=== PATIENT | female | born 1965 | race Caucasian/White ===

== ENCOUNTER → 2016-06-09 | Outpatient (CLI) | payer BC ==
--- NOTE | 2016-06-09 16:35 | MAMMOGRAPHY REPORT ---
BILATERAL DIGITAL DIAGNOSTIC MAMMOGRAM TOMOSYNTHESIS WITH CAD: 06/09/2016 CLINICAL HISTORY: Short interval follow-up of bilateral breast calcifications. History of atypia di agnosed on left breast excisional biopsy. TECHNIQUE: Breast tomosynthesis in addition to standard 2D mammography was performed. Current study was also evaluated with a Computer Aided Detection (CAD) system. Bilateral CC and MLO 2-D and breann synthesis images and bilateral spot magnification CC and ML views were obtained. COMPARISON: Comparison is made to exams dated: 12/02/2015 ultrasound, 12/02/2015 mammogram, 11/24/2015 m ammogram, 09/19/2013 mammogram, and 06/06/2013 mammogram - [facility]. BREAST COMPOSITION: The tissue of both breasts is extremely dense, which lowers the sensitivity of mammography. FINDINGS: Again noted are postsurgical changes in the left breast from prior excisional biopsy. Sp ot magnification views of the right breast demonstrate scattered and grouped calcifications within t he right upper outer quadrant, the majority of which demonstrate layering on the lateral view consis tent with benign milk of calcium. The calcifications are stable compared to the 12/02/2015 exam. Spo t magnification views of the left breast demonstrate scattered and grouped calcifications in the lef t lateral breast, some of which also demonstrate layering consistent with benign milk of calcium. T he calcifications in the left breast appear similar to those in the right breast, and the calcificat ions are also stable compared to the 12/02/2015 exam. Given the diffuse bilateral nature and given la yering on the lateral view, the calcifications are considered benign and felt to represent milk of c alcium/fibrocystic changes. There are no suspicious masses, calcifications, or areas of architectur al distortion noted in either breast. IMPRESSION: ACR BI-RADS CATEGORY 2: BENIGN 1. Bilateral calcifications are stable compared to the 12/02/2015 exam, and are benign and felt to rep resent milk of calcium/fibrocystic changes. There is no mammographic evidence of malignancy. Recom mend routine bilateral mammograms in one year. 2. Given the extremely dense breast parenchyma mammographically and given the history of left breas t atypia, consider screening bilateral breast MRI in addition to yearly mammography. The patient has been verbally notified of the results. Approximately 10% of breast cancers are not detected with mammography. A negative mammographic repor t should not delay biopsy if a clinically suggestive mass is present. Jennifer Angel M.D. ah/:06/09/2016 15:04:52 Dairy Farmer: Radha KUHN)([place]), [facility] letter sent: Normal 1/2 BI-RADS Code: ACR BI-RADS Category 2: Benign
== END | disposition home or self-care (01) ==
LOC: C.MAMM 13:55
PROVIDERS: ATTEND Family Medicine
DX: R92.1 Mammographic calcification found on diagnostic imaging of breast (principal)